=== PATIENT | female | born 2000 | race Caucasian/White ===

== ENCOUNTER 2021-01-07 14:24 | Outpatient (CLI) | payer OTHER, SELFPAY ==
[2021-01-10 13:58] LABS: NIL 0.01 IU/mL; Quantiferon TB Plus, 1T NEGATIVE (NEGATIVE)
== END 2021-01-07 14:25 | disposition home or self-care (01) ==
DX: Z11.1 Encounter for screening for respiratory tuberculosis (principal)
CPT/HCPCS: 36415; 86480

== ENCOUNTER 2023-10-11 18:20 | Emergency (ER) | payer OTHER, SELFPAY ==
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
[2023-10-11 18:31] VITALS: BP 146/96; PULSE 95; RESP 17; TEMP 36.8; O2SAT 100
[2023-10-11 21:09] VITALS: BP 137/89; PULSE 82; RESP 16; O2SAT 98
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
[2023-10-11] MEDS: ACETAMINOPHEN 500 MG TABLET 1000 MG PO (22:00)
[2023-10-11] MEDS: ONDANSETRON HCL ODT 4 MG TABLET PO (22:00)
[2023-10-11 22:12] LABS: BEDSIDEPREGUCG Negative
[2023-10-11 23:11] VITALS: BP 129/86; PULSE 72; RESP 16; O2SAT 100
== END 2023-10-11 23:13 | disposition home or self-care (01) ==
PROVIDERS: Emergency Provider Student in an Organized Health Care Education/Training Program
DX: S06.0XAA Concussion with loss of consciousness status unknown, initial encounter (principal); R07.89 Other chest pain; V43.52XA Car driver injured in collision with other type car in traffic accident, initial encounter
CPT/HCPCS: 70450; 71250; 72125; 81025; 99284; A9270